=== PATIENT | male | born 1980 | race Caucasian/White ===

== ENCOUNTER 2019-08-28 21:16 | Emergency (ER) | payer SELFPAY ==
[2019-08-28] MEDS ORDERED: SODIUM CHLORIDE 0.9% 1000ML 1,000 ML IVS ONE ×2 (21:29→22:05)
--- NOTE | 2019-08-28 21:34 | ED.PDOC ---
History of Present Illness - General Chief Complaint: Drug or Alcohol Abuse Stated Complaint: overdose Time Seen by Provider: 08/28/19 21:27 - History of Present Illness Initial Comments: 39 yo M PMH Anxiety/Depression PTSD and Bipolar Disorder on Seroquil presents 1 hour after taking about 20 (twenty) 200mg pills per patient. Pt sites stress as cause denies rpior suicide attempt denies other substances but is a poor historian. Denies fever chills nausea vomiting diarrhea chest pain sob diaphoresis. No change in diet rest bowel or bladder admits smoking denies drinking admits FH HTN DM PMD is Dr. Clark no other c/o today. Allergies/Adverse Reactions: Allergies NO KNOWN ALLERGY Allergy (Verified 08/28/19 21:31) Home Medications: Ambulatory Orders Quetiapine Fumarate [Seroquel] 200 mg PO BEDTIME 08/28/19 Review of Systems - Review of Systems Constitutional: States: see HPI EENTM: States: see HPI Respiratory: States: see HPI Cardiology: States: see HPI Gastrointestinal/Abdominal: States: see HPI Genitourinary: States: see HPI Musculoskeletal: States: see HPI Skin: States: see HPI Endocrine: States: see HPI Hematologic/Lymphatic: States: see HPI All other Systems: Reviewed and Negative Family Medical History - Family History Mother Hx Family Hypertension: Yes Physical Exam - Physical Exam General Appearance: No apparent distress, Lethargic Eye Exam: bilateral normal Ears, Nose, Throat: normal ENT inspection Neck: non-tender, full range of motion Respiratory: normal breath sounds Cardiovascular/Chest: regular rate, rhythm Gastrointestinal/Abdominal: non tender, soft Rectal Exam: deferred Back Exam: normal inspection Extremity: normal range of motion, non-tender Neurologic: oriented x 3 Skin Exam: normal color Progress - Progress Progress: 08/28/19 21:35 A/P-Suicidal Ideation, Drug Overdose-iv bolus tox screen ekg cxr trop cbc cmp lipase magnesium phosphorus called poison control recommended hydration monitor oxygenation and electrolytes ekg for QT prolongation reassess EKG-non specific TW changes no STEMI NSR 86 bpm, QTc 466 Will call [facility] on return of studies 08/28/19 21:41 09:42pm girlfriend at bedside gives further history the trigger for this event is her telling him she was leaving him. Pt. had an event in December where he placed facebook post that 'he is done' and family and friends had to 'search for him' 08/28/19 21:56 Called Poison Control [phone] spoke to '[facility]' benzodiazepams for agitation or seizures IVF hydration also monitor for tachycardia, will call pharmacy and ask if regular or extended release. Extended release requires monitoring for 12 hours after ingestion whereas regular formulation requires 6 hours of monitoring after ingestion so pt reports ingestion between 830 and 9pm. 08/28/19 22:08 Pt. did not take extended release formulation 08/29/19 00:56 On urine pt found to have evidence of methamphetamine and marijuana abuse - Results/Orders Results/Orders: Laboratory Tests 08/28/19 08/28/19 08/28/19 21:30 21:30 21:30 WBC RBC Hgb Hct MCV MCH MCHC RDW Plt Count MPV Absolute Neuts (auto) Absolute Lymphs (auto) Absolute Monos (auto) Absolute Eos (auto) Absolute Basos (auto) Neutrophils % Lymphocytes % Monocytes % Eosinophils % Basophils % PT INR PTT (SP) Sodium 137 Potassium 3.7 Chloride 103 Carbon Dioxide 23 Anion Gap 14.7 BUN 10 Creatinine 1.04 BUN/Creatinine Ratio 9.6 L Random Glucose 130 H Serum Osmolality 274.6 L Calcium 8.7 Phosphorus 3.4 Magnesium 2.1 Total Bilirubin 0.6 AST 24 ALT 18 Alkaline Phosphatase 65 Troponin I < 0.02 Serum Total Protein 6.3 L Albumin 3.7 Globulin 2.6 Albumin/Globulin Ratio 1.4 Lipase 73 H Salicylates < 4.0 Acetaminophen < 10.0 L Ethyl Alcohol 08/28/19 08/28/19 08/28/19 21:30 21:30 21:40 WBC 7.1 RBC 4.84 Hgb 14.5 Hct 41.4 L MCV 85.5 MCH 29.9 MCHC 35.0 RDW 13.0 Plt Count 190 MPV 8.8 Absolute Neuts (auto) 3.70 Absolute Lymphs (auto) 2.50 Absolute Monos (auto) 0.80 Absolute Eos (auto) 0.20 Absolute Basos (auto) 0.00 Neutrophils % 51.6 Lymphocytes % 34.7 Monocytes % 10.8 H Eosinophils % 2.4 Basophils % 0.5 PT 10.4 INR 1.04 PTT (SP) 27.0 Sodium Potassium Chloride Carbon Dioxide Anion Gap BUN Creatinine BUN/Creatinine Ratio Random Glucose Serum Osmolality Calcium Phosphorus Magnesium Total Bilirubin AST ALT Alkaline Phosphatase Troponin I Serum Total Protein Albumin Globulin Albumin/Globulin Ratio Lipase Salicylates Acetaminophen Ethyl Alcohol < 5.40 EXAM DESCRIPTION: Chest,1 View CLINICAL HISTORY: overdose COMPARISON: None. FINDINGS: Single frontal view of the chest. Cardiomediastinal silhouette: Normal size and contour. Lungs: No consolidation, pneumothorax, or pleural effusion. Bones: No acute osseous abnormality. Leads overlie the chest. Upper abdomen: No abnormality identified. IMPRESSION: 1. No acute pulmonary process identified. Electronically signed by: Samuel Koenig 08/28/2019 10:03 PM CDT Laboratory Tests 08/28/19 08/28/19 08/28/19 00:34 21:30 21:30 WBC RBC Hgb Hct MCV MCH MCHC RDW Plt Count MPV Absolute Neuts (auto) Absolute Lymphs (auto) Absolute Monos (auto) Absolute Eos (auto) Absolute Basos (auto) Neutrophils % Lymphocytes % Monocytes % Eosinophils % Basophils % PT INR PTT (SP) Sodium 137 Potassium 3.7 Chloride 103 Carbon Dioxide 23 Anion Gap 14.7 BUN 10 Creatinine 1.04 BUN/Creatinine Ratio 9.6 L Random Glucose 130 H Serum Osmolality 274.6 L Calcium 8.7 Phosphorus 3.4 Magnesium 2.1 Total Bilirubin 0.6 AST 24 ALT 18 Alkaline Phosphatase 65 Troponin I Serum Total Protein 6.3 L Albumin 3.7 Globulin 2.6 Albumin/Globulin Ratio 1.4 Lipase 73 H Urine Color Urine Appearance Urine pH Ur Specific [place] Urine Protein Urine Glucose (UA) Urine Ketones Urine Blood Urine Nitrite Urine Bilirubin Urine Urobilinogen Ur Leukocyte Esterase Urine RBC Urine WBC Ur Epithelial Cells Urine Bacteria Salicylates < 4.0 Urine Opiates Screen Negative Acetaminophen < 10.0 L Urine Barbiturates Negative Ur Phencyclidine Scrn Negative U Amphetamin/Meth Scrn Positive H U Benzodiazepines Scrn Negative U Cocaine Metab Screen Negative U Cannabinoids Screen Positive H Ethyl Alcohol 08/28/19 08/28/19 08/28/19 21:30 21:30 21:30 WBC 7.1 RBC 4.84 Hgb 14.5 Hct 41.4 L MCV 85.5 MCH 29.9 MCHC 35.0 RDW 13.0 Plt Count 190 MPV 8.8 Absolute Neuts (auto) 3.70 Absolute Lymphs (auto) 2.50 Absolute Monos (auto) 0.80 Absolute Eos (auto) 0.20 Absolute Basos (auto) 0.00 Neutrophils % 51.6 Lymphocytes % 34.7 Monocytes % 10.8 H Eosinophils % 2.4 Basophils % 0.5 PT 10.4 INR 1.04 PTT (SP) 27.0 Sodium Potassium Chloride Carbon Dioxide Anion Gap BUN Creatinine BUN/Creatinine Ratio Random Glucose Serum Osmolality Calcium Phosphorus Magnesium Total Bilirubin AST ALT Alkaline Phosphatase Troponin I < 0.02 Serum Total Protein Albumin Globulin Albumin/Globulin Ratio Lipase Urine Color Urine Appearance Urine pH Ur Specific [place] Urine Protein Urine Glucose (UA) Urine Ketones Urine Blood Urine Nitrite Urine Bilirubin Urine Urobilinogen Ur Leukocyte Esterase Urine RBC Urine WBC Ur Epithelial Cells Urine Bacteria Salicylates Urine Opiates Screen Acetaminophen Urine Barbiturates Ur Phencyclidine Scrn U Amphetamin/Meth Scrn U Benzodiazepines Scrn U Cocaine Metab Screen U Cannabinoids Screen Ethyl Alcohol 08/28/19 08/29/19 21:40 00:34 WBC RBC Hgb Hct MCV MCH MCHC RDW Plt Count MPV Absolute Neuts (auto) Absolute Lymphs (auto) Absolute Monos (auto) Absolute Eos (auto) Absolute Basos (auto) Neutrophils % Lymphocytes % Monocytes % Eosinophils % Basophils % PT INR PTT (SP) Sodium Potassium Chloride Carbon Dioxide Anion Gap BUN Creatinine BUN/Creatinine Ratio Random Glucose Serum Osmolality Calcium Phosphorus Magnesium Total Bilirubin AST ALT Alkaline Phosphatase Troponin I Serum Total Protein Albumin Globulin Albumin/Globulin Ratio Lipase Urine Color Yellow Urine Appearance Clear Urine pH 7.0 Ur Specific [place] 1.015 Urine Protein Negative Urine Glucose (UA) Negative Urine Ketones Negative Urine Blood Negative Urine Nitrite Negative Urine Bilirubin Negative Urine Urobilinogen 0.2 Ur Leukocyte Esterase Negative Urine RBC 0 Urine WBC 0 Ur Epithelial Cells 0 Urine Bacteria 0 Salicylates Urine Opiates Screen Acetaminophen Urine Barbiturates Ur Phencyclidine Scrn U Amphetamin/Meth Scrn U Benzodiazepines Scrn U Cocaine Metab Screen U Cannabinoids Screen Ethyl Alcohol < 5.40 Departure - Departure Clinical Impression: Suicidal ideation, Methamphetamine abuse, Marijuana abuse Intentional drug overdose Qualifiers: Encounter type: initial encounter Qualified Code(s): T50.902A - Poisoning by unspecified drugs, medicaments and biological substances, intentional self-harm, initial encounter Time of Disposition: 06:17 Disposition: Transfer to [facility] Hospital Condition: Fair Departure Forms: ED Discharge - Pt. Copy, Patient Portal Self Enrollment Instructions: DI for Drug Overdose in Adults Diet: resume usual diet Home Medications: Ambulatory Orders Quetiapine Fumarate [Seroquel] 200 mg PO BEDTIME 08/28/19
--- NOTE | 2019-08-28 22:05 | RAD ---
EXAM DESCRIPTION: Chest,1 View CLINICAL HISTORY: overdose COMPARISON: None. FINDINGS: Single frontal view of the chest. Cardiomediastinal silhouette: Normal size and contour. Lungs: No consolidation, pneumothorax, or pleural effusion. Bones: No acute osseous abnormality. Leads overlie the chest. Upper abdomen: No abnormality identified. IMPRESSION: 1. No acute pulmonary process identified. Electronically signed by: Samuel Koenig 08/28/2019 10:03 PM CDT
[2019-08-28] MEDS ORDERED: SODIUM CHLORIDE 0.9% 1000ML 1,000 ML IVS PRN (22:06)
[2019-08-29 05:18] VITALS: O2SAT 99
[2019-08-29 06:14] VITALS: BP 143/98
[2019-08-29 06:34] VITALS: TEMP 97.5
== END 2019-08-29 06:35 ==
LOC: ER 21:16
DX: T43.592A Poisoning by other antipsychotics and neuroleptics, intentional self-harm, initial encounter (principal); F15.10 Other stimulant abuse, uncomplicated; F12.10 Cannabis abuse, uncomplicated; F31.9 Bipolar disorder, unspecified; F43.10 Post-traumatic stress disorder, unspecified; F17.200 Nicotine dependence, unspecified, uncomplicated
CPT/HCPCS: 71045; 80053; 80307; 80320; 80329; 81001; 83690; 83735; 84100; 84484; 85025; 85610; 85730; 93005; 94760; J7030